=== PATIENT | male | born 1985 | race Caucasian/White ===

== ENCOUNTER 2019-05-16 11:11 | Emergency (ER) | payer OTHER ==
[~2019-05-16] VITALS: Ht 160 cm; Wt 65.0 kg
[~2019-05-16 11:11] MED LIST: ALPR0.5T6 PO
[2019-05-16 11:18] VITALS: Ht 160 cm; Wt 65.0 kg
[2019-05-16] MEDS ORDERED: POTASSIUM CHLORIDE (SR) 20 MEQ TAB PO STA (13:05)
[2019-05-16 17:15] VITALS: BP 126/79; PULSE 79; RESP 16
== END 2019-05-16 17:19 | disposition home or self-care (01) ==
LOC: E/R 11:11
DX: R41.82 Altered mental status, unspecified (principal); F17.210 Nicotine dependence, cigarettes, uncomplicated; R40.2142 Coma scale, eyes open, spontaneous, at arrival to emergency department; R40.2352 Coma scale, best motor response, localizes pain, at arrival to emergency department; R40.2242 Coma scale, best verbal response, confused conversation, at arrival to emergency department; F11.90 Opioid use, unspecified, uncomplicated
CPT/HCPCS: 80053; 80307; 85025; Z7502; Z7610; 99283